=== PATIENT | female | born 1995 | race African-American/Black ===

== ENCOUNTER 2022-03-14 08:05 | Emergency (ER) | payer MEDICAID ==
[~2022-03-14] VITALS: Ht 167.6 cm; Wt 81.0 kg
[2022-03-14] MEDS ORDERED: ONDANSETRON 4MG ODT PO ONE (08:45)
[2022-03-14] MEDS ORDERED: MAGNESIUM/ALUMINUM HYDROXIDE/SIMETHICONE 30ML UDC PO ONE (09:45)
[2022-03-14] MEDS ORDERED: FAMOTIDINE 20MG TABLET PO ONE (09:45)
[2022-03-14] MEDS ORDERED: FAMO-135 MT (10:12)
[2022-03-14] MEDS ORDERED: ONDA4TAB11 PO (10:12)
[2022-03-14 10:24] VITALS: BP 124/82
== END 2022-03-14 10:26 | disposition home or self-care (01) ==
LOC: ER 08:42
DX: K52.9 Noninfective gastroenteritis and colitis, unspecified (principal)
CPT/HCPCS: 81025; 99284; Q0162

== ENCOUNTER 2023-04-08 01:11 | Emergency (ER) | payer MEDICAID, OTHER ==
[~2023-04-08] VITALS: Ht 152.4 cm; Wt 98.1 kg
[~2023-04-08 01:11] MED LIST: FAMO-135 MT; ONDA4TAB11 PO
[2023-04-08 01:20] VITALS: O2SAT 99
[2023-04-08 01:43] LABS: BASOPHILS % 0.5 % (0.0-2.0); EOSINOPHILS % 1.4 % (0.0-5.0); HEMATOCRIT. 37.6 % (36.0-48.0); HEMOGLOBIN. 11.9 g/dL (12.0-16.0); LYMPHOCYTES % 33.8 % (20.0-50.0); MEAN CORPUSCULAR HEMOGLOBIN 27.2 pg (28.0-32.0); MEAN CORPUSCULAR HGB CONC 31.7 g/dL (31.0-37.0); MEAN CORPUSCULAR VOLUME 85.9 fL (81.0-99.0); MEAN PLATELET VOLUME 7.7 fl (7.4-10.4); MONOCYTES % 7.3 % (2.0-8.0); PLATELET 291 x1000/uL (130-400); RED BLOOD CELL COUNT 4.38 mill/uL (4.2-5.4); RED CELL DISTRIBUTION WIDTH 15.9 % (11.6-14.6); WHITE BLOOD COUNT 10.8 x1000/uL (4.5-11.0)
[2023-04-08 01:49] LABS: CHLORIDE 104 mEq/L (98-107); INDEX HEMOLYSI 1 (1-3); INDEX ICTERIC 1 (1-4); INDEX LIPEMIC 1 (1-3); POTASSIUM 3.5 mEq/L (3.5-5.1); SODIUM 137 mEq/L (136-145)
[2023-04-08 01:54] LABS: PARTIAL THROMBOPLASTIN TIME 30.8 sec (23.4-31.0); PROTHROMBIN TIME 10.6 sec (9.6-11.0)
[2023-04-08 02:00] LABS: ALANINE AMINOTRANSFERASE 19 IU/L (13-61); ALBUMIN 3.7 g/dL (3.4-5.0); ASPARTATE AMINOTRANSFERASE 17 IU/L (15-37); BILIRUBIN TOTAL 0.2 mg/dL (0.1-1.0); CALCIUM 9.3 mg/dL (8.5-10.1); CARBON DIOXIDE 26 mEq/L (21-32); CREATININE 0.8 mg/dL (0.6-1.3); GLUCOSE 98 mg/dL (70-105); PROTEIN TOTAL 7.5 g/dL (6.0-8.3); UREA NITROGEN BLOOD 12 mg/dL (7-21)
[2023-04-08 02:11] LABS: TROPONIN I HIGH SENSITIVITY < 4 ng/L (<54)
[2023-04-08] MEDS ORDERED: IBUP-2029 MT (03:18)
[2023-04-08] MEDS ORDERED: METH-653 MT (03:18)
[2023-04-08 03:31] VITALS: BP 122/83; PULSE 75; RESP 15; TEMP 98
[2023-04-08 04:14] LABS: CLARITY URINE CLEAR (CLEAR); COLOR URINE YELLOW (YELLOW); GLUCOSE URINE NEGATIVE (NEGATIVE); KETONES URINE NEGATIVE (NEGATIVE); LEUKOCYTE ESTERASE URINE TRACE (NEGATIVE); NITRITE URINE NEGATIVE (NEGATIVE); OCCULT BLOOD URINE NEGATIVE (NEGATIVE); PH URINE 5.5 (4.5-8.0); PROTEIN URINE NEGATIVE (NEGATIVE); SPECIFIC GRAVITY URINE 1.018 (1.005-1.030); UROBILINOGEN URINE 0.2 E.U./dL (0.2-1.0)
[2023-04-08 04:21] LABS: YEAST URINE NONE SEEN
[2023-04-08 04:25] LABS: BACTERIA URINE TRACE; RBC URINE 0-2 /hpf (0-2); SQUAMOUS EPITHELIAL CELL URINE RARE /lpf (RARE/1+)
== END 2023-04-08 03:32 | disposition home or self-care (01) ==
LOC: ER 01:11
DX: R09.1 Pleurisy (principal); Z98.890 Other specified postprocedural states
CPT/HCPCS: 36415; 71045; 80053; 81003; 81025; 84484; 85025; 93005; 99285

== ENCOUNTER 2024-04-05 22:13 | Emergency (ER) | payer MEDICAID, OTHER ==
[~2024-04-05] VITALS: Ht 152.4 cm; Wt 87.0 kg
[~2024-04-05 22:13] MED LIST changes: +IBUP-2029 MT; +METH-653 MT
[2024-04-05 22:57] VITALS: BP 121/79; PULSE 68; RESP 20; TEMP 98.4; O2SAT 100
[2024-04-05] MEDS ORDERED: NAPR-1176 MT (23:58)
[2024-04-06] MEDS: ACETAMINOPHEN 325MG TABLET PO ONE (00:20)
[2024-04-06] MEDS ORDERED: BO1 TP (11:13)
== END 2024-04-06 00:27 | disposition home or self-care (01) ==
LOC: ER 22:13
DX: S90.121A Contusion of right lesser toe(s) without damage to nail, initial encounter (principal); Z91.013 Allergy to seafood; Z79.899 Other long term (current) drug therapy; X58.XXXA Exposure to other specified factors, initial encounter; Y93.89 Activity, other specified; Y92.89 Other specified places as the place of occurrence of the external cause; Y99.8 Other external cause status
CPT/HCPCS: 73660; 99283

== ENCOUNTER 2024-04-06 10:23 | Emergency (ER) | payer SELFPAY ==
[~2024-04-06] VITALS: Ht 152.4 cm; Wt 86.2 kg
[~2024-04-06 10:23] MED LIST changes: +NAPR-1176 MT
[2024-04-06 10:38] VITALS: BP 113/72; PULSE 73; RESP 17; TEMP 97.6; O2SAT 99
[2024-04-06] MEDS ORDERED: BO1 TP (11:13)
== END 2024-04-06 11:39 | disposition home or self-care (01) ==
LOC: ER 10:25
DX: L03.031 Cellulitis of right toe (principal); Z91.013 Allergy to seafood
CPT/HCPCS: 99281